=== PATIENT | female | born 1955 | race Caucasian/White ===

== ENCOUNTER → 2016-11-24 | Outpatient (CLI) | payer MEDICAID | END | disposition home or self-care (01) | LOC: CFH 08:08 | PROVIDERS: ATTEND Nurse Practitioner | DX: M20.12 Hallux valgus (acquired), left foot (principal) ==

== ENCOUNTER 2017-03-09 15:10 | Day surgery (SDC) | payer MEDICAID ==
[~2017-03-09] VITALS: Ht 157.5 cm; Wt 44.0 kg
[2017-03-09 15:35] VITALS: BP 122/72
[2017-03-09] MEDS ORDERED: DEXAMETHASONE 4 MG/ML, 1ML ONE (15:46)
[2017-03-09] MEDS ORDERED: ONDANSETRON 2MG/ML, 2ML ONE (15:46)
[2017-03-09] MEDS ORDERED: METH-356 PO (16:13)
[2017-03-09] MEDS ORDERED: LEVO100T5 PO (16:13)
[2017-03-09] MEDS ORDERED: FLUO40CA9 PO (16:13)
[2017-03-09] MEDS ORDERED: LABETALOL 5MG/ML, 20ML IV PRN (17:00)
[2017-03-09] MEDS ORDERED: FENTANYL PF 100 MCG/2ML IV PRN (17:00)
[2017-03-09] MEDS ORDERED: HYDROmorphone 1 MG/ML, 1ML IV PRN (17:00)
[2017-03-09] MEDS ORDERED: METOPROLOL 1 MG/ML, 5ML IV PRN (17:00)
[2017-03-09] MEDS ORDERED: EPHEDRINE 50 MG/ML, 1ML IVPush PRN (17:00)
[2017-03-09] MEDS ORDERED: ALBUTEROL SULFATE 2.5 MG/3 ML NPPB PRN (17:00)
[2017-03-09] MEDS ORDERED: ACETAMINOPHEN 325 MG TABLET PO PRN (17:00)
[2017-03-09] MEDS ORDERED: ONDANSETRON 2MG/ML, 2ML IVPush PRN (17:00)
[2017-03-09] MEDS ORDERED: MEPERIDINE/PF 25MG/0.5ML IVPush PRN (17:00)
[2017-03-09] MEDS ORDERED: OXYcodone 5 MG/5 ML ORAL.SOL UDC PO PRN (17:00)
[2017-03-09] MEDS ORDERED: hydrALAzine 20 MG/ML, 1ML IV PRN (17:00)
[2017-03-09] MEDS ORDERED: FENTANYL PF 100 MCG/2ML ONE (17:16)
[2017-03-09] MEDS ORDERED: MIDAZOLAM 1 MG/ML, 2ML ONE (17:17)
[2017-03-09] MEDS ORDERED: CEFAZOLIN 1,000 MG ONE (17:19)
[2017-03-09] MEDS ORDERED: PROPOFOL 10 MG/ML, 20ML ONE (17:19)
== END 2017-03-09 22:06 | disposition home or self-care (01) ==
LOC: OR 15:10 → 4NOR 21:00 → OR 22:06
PROVIDERS: ATTEND Orthopaedic Surgery
DX: M20.11 Hallux valgus (acquired), right foot (principal); E03.9 Hypothyroidism, unspecified; Z88.1 Allergy status to other antibiotic agents; Z88.8 Allergy status to other drugs, medicaments and biological substances
CPT/HCPCS: 28297; 73620; 76001; C1713; C1769; J0690; J1100; J2250; J2405; J2704; J3010